=== PATIENT | female | born 1960 | race Caucasian/White ===

== ENCOUNTER 2024-10-09 07:22 | Day surgery (SDC) | payer OTHER ==
[2024-10-09] MEDS: Sodium Chloride 0.9% 10 ML Syringe FLUSH PRN (08:05)
== END 2024-10-09 08:50 | disposition home or self-care (01) ==
LOC: JP.SDS 07:22
PROVIDERS: ATTEND Ophthalmology
DX: H25.11 Age-related nuclear cataract, right eye (principal)
CPT/HCPCS: 66984; V2632; 00142-QZ

== ENCOUNTER 2024-11-13 07:27 | Day surgery (SDC) | payer OTHER ==
[2024-11-13] MEDS: Sodium Chloride 0.9% 10 ML Syringe FLUSH ONE (08:03)
== END 2024-11-13 09:21 | disposition home or self-care (01) ==
LOC: JP.SDS 07:27
PROVIDERS: ATTEND Ophthalmology
DX: H25.12 Age-related nuclear cataract, left eye (principal); I10 Essential (primary) hypertension; Z91.018 Allergy to other foods; F17.200 Nicotine dependence, unspecified, uncomplicated
CPT/HCPCS: 66984; V2632; 00142-QZ